=== PATIENT | male | born 1945 | race Caucasian/White ===

== ENCOUNTER → 2016-09-11 | Outpatient (CLI) | payer MEDICARE ==
[~2016-09-11] MED LIST: AMARYL1 MG PO; CENTRUM SILVER PO; FUROSEMIDE40 MG PO; LIPITOR40 MG PO; METFORMIN HCL1000 M1 PO; ST. JOSEPH ASP325 MG PO; ZESTRIL10 M2 PO
--- NOTE | ~2016-09-11 | EKG ---
PATIENT: WALDO RAHMAN UNIT #: [id number] Ventricular Rate: 67 BPM Atrial Rate: 67 BPM P-R Interval: 160 ms QRS Duration: 176 ms Q-T Interval: 448 ms QTC Calculation(Bezet): 473 ms P [place]: 36 degrees Calculated R [place]: -51 degrees Calculated T [place]: 97 degrees Diagnosis Line: Normal sinus rhythm Diagnosis Line: Left axis deviation Diagnosis Line: Left bundle branch block Diagnosis Line: Abnormal ECG Diagnosis Line: No previous ECGs available Diagnosis Line: Confirmed by ALKA DICKENS MD ([id number]) on Diagnosis Line: 09/15/2016 2:08:16 PM INTERPRETING MD: [email or web address]
[2016-09-11 08:05] LABS: HEMATOCRIT 54.3 % (38.0-50.0); HEMOGLOBIN 17.7 gm/dL (13.0-16.0); MEAN CELL VOLUME 101.6 FL (83-96); MEAN CORPUSCULAR HEMOGLOBIN 33.1 PG (28-34); MEAN CORPUSCULAR HGB CONC 32.6 g/dL (30-36); RED BLOOD COUNT 5.34 X10e (3.90-5.60); RED CELL DISTRIBUTION WIDTH 13.4 % (11.0-15.5)
[2016-09-11 08:21] LABS: PARTIAL THROMBOPLASTIN TIME 26.5 SECONDS (23.5-31.3); PROTHROMBIN TIME (PATIENT) 10.7 SECONDS (9.6-11.5)
[2016-09-11 08:27] LABS: BUN/CREATININE RATIO 25.38; CALCIUM SERUM 9.5 mg/dL (8.4-10.2); CREATININE SERUM 1.3 mg/dL (0.6-1.4); GLOM FILT RATE Estimated 56.1 mL/min (>60); POTASSIUM 4.4 mmol/L (3.5-5.1)
== END | disposition home or self-care (01) ==
LOC: CCVL 07:32
PROVIDERS: Internal Medicine Cardiovascular Disease
PROC: 4A023N8 Measurement of Cardiac Sampling and Pressure, Bilateral, Percutaneous Approach (ICD-10-PCS; principal; 2016-09-11)
PROC: B211YZZ Fluoroscopy of Multiple Coronary Arteries using Other Contrast (ICD-10-PCS; 2016-09-11)
PROC: B215YZZ Fluoroscopy of Left Heart using Other Contrast (ICD-10-PCS; 2016-09-11)
DX: I42.9 Cardiomyopathy, unspecified (principal); I70.0 Atherosclerosis of aorta; I44.7 Left bundle-branch block, unspecified; I10 Essential (primary) hypertension; R06.02 Shortness of breath; Z79.899 Other long term (current) drug therapy
CPT/HCPCS: 36415; 80048; 85027; 85610; 85730; 93005; C1769; C1887; C1894; J1644; J2250; J3010

== ENCOUNTER → 2016-09-25 | Outpatient (CLI) | payer MEDICARE ==
[2016-09-25 11:25] LABS: CALCIUM SERUM 9.6 mg/dL (8.4-10.2); POTASSIUM 4.3 mmol/L (3.5-5.1)
== END | disposition home or self-care (01) ==
LOC: CLAB 09:38
PROVIDERS: Internal Medicine Cardiovascular Disease
DX: R94.4 Abnormal results of kidney function studies (principal)
CPT/HCPCS: 36415; 80048